=== PATIENT | male | born 2005 | race Caucasian/White ===

== ENCOUNTER 2025-08-09 20:11 | Emergency (ER) | payer BC ==
[~2025-08-09] VITALS: Ht 177.8 cm; Wt 86.2 kg
[2025-08-09 20:11] VITALS: BP 157/89
[2025-08-09] MEDS ORDERED: ACETAMINOPHEN 500 MG TABLET ONE (20:28)
[2025-08-09] MEDS ORDERED: TDAP DIPH,PERTUSS,TET VAC/PF 0.5 ML DISP.SYRIN IM ONE ×2 (20:29→20:30)
[2025-08-09] MEDS: ACETAMINOPHEN 500 MG TABLET PO ONE (20:38)
[2025-08-09] MEDS ORDERED: NEOMY/BACITRA/POLYMYXIN B OINT UD PACKET TP ONE (21:09)
[2025-08-09] MEDS: NEOMY/BACITRA/POLYMYXIN B OINT UD PACKET TP ONE (21:10)
[2025-08-09 21:30] VITALS: BP 142/85; TEMP 98; O2SAT 98
== END 2025-08-09 21:30 | disposition home or self-care (01) ==
LOC: ER 20:11
DX: S61.511A Laceration without foreign body of right wrist, initial encounter (principal); W26.8XXA Contact with other sharp object(s), not elsewhere classified, initial encounter; Y93.89 Activity, other specified; Y92.090 Kitchen in other non-institutional residence as the place of occurrence of the external cause; Y99.8 Other external cause status
CPT/HCPCS: 90715; A4606; A4663; A9150